=== PATIENT | female | born 1975 | race African-American/Black ===

== ENCOUNTER 2016-10-15 23:08 | Emergency (ER) | payer MEDICAID ==
--- NOTE | 2016-10-16 00:12 | EDM.PDOC ---
ED HPI GENERAL MEDICAL PROBLEM - General Chief Complaint: ENT Problem Stated Complaint: SINUS INFECTION Time Seen by Provider: 10/16/16 00:00 - History of Present Illness INITIAL COMMENTS - FREE TEXT/NARRATIVE: HISTORY AND PHYSICAL: History of present illness: [The patient is a 41-year-old female who is a known history of asthma and seasonal allergies who recently arrived here from [place] and is staying in our area and has had a 24-hour history of sinus congestion and pressure. The patient has not had any wheezing chest pain or shortness of breath and no fevers or chills but was concerned because her nasal drainage looks somewhat yellow. Patient does take Mayela and uses nasal spray for her allergies but has not been using it regularly. The patient has no other systemic complaints and she has not tried any of the [id number] meds Review of systems: As per history of present illness and below otherwise all systems reviewed and negative. Past medical history: As per history of present illness and as reviewed below otherwise noncontributory. Surgical history: As per history of present illness and as reviewed below otherwise noncontributory. Social history: No reported history of drug or alcohol abuse. Family history: As per history of present illness and as reviewed below otherwise noncontributory. Physical exam: Gen.: Well-developed well-nourished female who is nasal quality to voice is nontoxic and vital signs of the note by me HEENT: Atraumatic, normocephalic, pupils reactive, negative for conjunctival pallor or scleral icterus, mucous membranes moist, throat clear, neck supple, nontender, trachea midline. Patient has no discrete sinus tenderness on palpation but does have boggy turbinates bilaterally and nasal quality to voice Lungs: Clear to auscultation, breath sounds equal bilaterally, chest nontender. Heart: S1S2, regular rate and rhythm no overt murmurs Abdomen: Soft, nondistended, nontender. NABS Skin: Normal turgor no evidence of any rashes or lesions Genitourinary: Deferred. Rectal: Deferred. Extremities: Atraumatic, negative for cords or calf pain. Neurovascular unremarkable. Neuro: Awake, alert, oriented. Cranial nerves II through XII unremarkable. Cerebellum unremarkable. Motor and sensory unremarkable throughout. Exam nonfocal. Diagnostics: [] Therapeutics: [] Discussed with the patient that she should restart using [id number] Flonase and Claritin or Mayela as this is likely environmental due to her change in location and her lack of using her baseline allergy meds. The patient says that she came in specifically because she wanted a dose of antibiotics to "flush it out of her system". I did discuss with her that I did not think that having symptoms for just 24 hours with clinically mandate antibiotics and that she should follow-up the clinic Impression: Seasonal allergies/environmental rhinitis and sinusitis Definitive disposition and diagnosis as appropriate pending reevaluation and review of above. sinus/facial Pain Score (Numeric/FACES): 6 - Related Data Allergies Allergy/AdvReac Type Severity Reaction Status Date / Time Fish Containing Products Allergy Airway Verified 10/15/16 23:24 Tightness Home Meds: Home Meds . [No Known Home Meds] 10/15/16 [History] Past Medical History HEENT History: Reports: None Cardiovascular History: Reports: Hypertension Respiratory History: Reports: Asthma Gastrointestinal History: Reports: None Genitourinary History: Reports: None STE[employer] History: Reports: None Musculoskeletal History: Reports: None Neurological History: Reports: None Psychiatric History: Reports: None Endocrine/Metabolic History: Reports: None Hematologic History: Reports: None - Infectious Disease History Infectious Disease History: Reports: Chicken Pox Social & Family History - Family History Family Medical History: Noncontributory - Tobacco Use Smoking Status *Q: Current Every Day Smoker Years of Tobacco use: 20 Packs/Tins Daily: 1 - Recreational Drug Use Recreational Drug Use: No ED ROS GENERAL - Review of Systems Review Of Systems: ROS reveals no pertinent complaints other than HPI. ED EXAM, GENERAL - Physical Exam Exam: See Below Course - Vital Signs Last Recorded V/S: Last Vital Signs Temp 36.2 C 10/15/16 23:25 Pulse 80 10/15/16 23:25 Resp 16 10/15/16 23:25 BP 166/99 H 10/15/16 23:25 Pulse Ox 96 10/15/16 23:25 Departure - Departure Time of Disposition: 00:11 Disposition: Home, Self-Care 01 Condition: Good Clinical Impression: Environmental allergies Rhinitis Qualifiers: Rhinitis type: unspecified Chronicity: acute Qualified Code(s): J00 - Acute nasopharyngitis [common cold] - Discharge Information Forms: ED Department Discharge Additional Instructions: The following information is given to patients seen in the emergency department who are being discharged to home. This information is to outline your options for follow-up care. We provide all patients seen in our emergency department with a follow-up referral. The need for follow-up, as well as the timing and circumstances, are variable depending upon the specifics of your emergency department visit. If you don't have a primary care physician on staff, we will provide you with a referral. We always advise you to contact your personal physician following an emergency department visit to inform them of the circumstance of the visit and for follow-up with them and/or the need for any referrals to a consulting specialist. The emergency department will also refer you to a specialist when appropriate. This referral assures that you have the opportunity for followup care with a specialist. All of these measure are taken in an effort to provide you with optimal care, which includes your followup. Under all circumstances we always encourage you to contact your private physician who remains a resource for coordinating your care. When calling for followup care, please make the office aware that this follow-up is from your recent emergency room visit. If for any reason you are refused follow-up, please contact the [facility] emergency department at and ask to speak to the emergency department charge nurse. [facility] Primary care- Internal Medicine and Family [address] [address] Please use [id number] medications as we discussed and push fluids. Please call and follow-up in one of our clinics and return here as needed and as discussed
== END 2016-10-16 00:22 | disposition home or self-care (01) ==
LOC: MW.ED 23:08
CPT/HCPCS: 99282; 99283